=== PATIENT | female | born 1985 | race Caucasian/White ===

== ENCOUNTER 2018-06-22 10:54 | Emergency (ER) | payer OTHER ==
[2018-06-22 11:06] VITALS: BP 118/76
--- NOTE | 2018-06-22 11:17 | UC ---
Ear Complaint HPI - HPI Summary HPI Summary: 32 yo female presents with RIGHT ear pain for the last 3 days. She tells me that her pain initially began as mild, but has significantly increased over the last 3 days. She also has some muffled hearing from this ear. She is feeling well otherwise and denies fever, chills, sinus symptoms, sore throat, or cough. - History of Current Complaint Chief Complaint: UCEar Stated Complaint: EAR ACHE Time Seen by Provider: 06/22/18 11:13 Hx Obtained From: Patient Hx Last Menstrual Period: 06/11/18 Onset/Duration: Gradual Onset Severity Initially: Mild Severity Currently: Moderate Pain Intensity: 6 Pain Scale Used: 0-10 Numeric - Allergies/Home Medications Allergies/Adverse Reactions: Allergies Allergy/AdvReac Type Severity Reaction Status Date / Time doxycycline Allergy Hives Verified 06/22/18 11:06 PMH/Surg Hx/FS Hx/Imm Hx - Additional Past Medical History Additional PMH: None - Surgical History Surgical History: Yes Surgery Procedure, Year, and Place: gall bladder, d&c - Family History Known Family History: Positive: None - Social History Occupation: Employed Full-time Lives: With Family Alcohol Use: Occasionally Substance Use Type: None Smoking Status (MU): Never Smoked Tobacco Review of Systems All Other Systems Reviewed And Are Negative: Yes Constitutional: Positive: Negative Skin: Positive: Negative Eyes: Positive: Negative ENT: Positive: Ear Ache Respiratory: Positive: Negative Cardiovascular: Positive: Negative Gastrointestinal: Positive: Negative Neurovascular: Positive: Negative Neurological: Positive: Negative Psychological: Positive: Negative Physical Exam - Summary Physical Exam Summary: GENERAL: NAD. WDWN. No pain distress. SKIN: No rashes, sores, lesions, or open wounds. HEENT: Head: AT/NC Eyes: EOM intact. Conjunctiva clear without inflammation or discharge. Ears: Hearing grossly normal. RIGHT EAR: Moderate yellow/brown cerumen obstructing view of TM. Mild canal erythema and edema. Tragus TTP. s/p disimpaction: TM intact without erythema or bulging. Mild white discharge within canal. LEFT EAR: WNL. TM normal Nose: Nasal mucosa pink and moist. NTTP maxillary and frontal sinus. Throat: Posterior oropharynx without exudates, erythema, or tonsillar enlargement. Uvula midline. NECK: Supple. Nontender. No lymphadenopathy. CHEST: CTAB. No r/r/w. No accessory muscle use. Breathing comfortably and in no distress. CV: RRR. Without m/r/g. Pulses intact. NEURO: Alert. PSYCH: Age appropriate behavior. Triage Information Reviewed: Yes Vital Signs: Initial Vital Signs Temp 98 F 06/22/18 11:03 Pulse 78 06/22/18 11:03 Resp 16 06/22/18 11:03 BP 118/76 06/22/18 11:03 Pulse Ox 100 06/22/18 11:03 Vital Signs Reviewed: Yes Ear Complaint Course/Dx - Course Course Of Treatment: Cerumen impaction of right ear with otitis externa. Ear irrigation was performed with successful disimpaction of cerumen. On exam after disimpaction there was an obvious otitis externa, which I will treat with antibiotic ear drops. - Differential Dx/Diagnosis Provider Diagnoses: Right otitis externa. Right cerumen impaction Discharge - Sign-Out/Discharge Documenting (check all that apply): Patient Departure All imaging exams completed and their final reports reviewed: No Studies - Discharge Plan Condition: Stable Disposition: HOME Prescriptions: Ofloxacin 0.3% (Ear Drop)* [Floxin 0.3% OTIC.SUSIE (Ear Drop)] 5 drop RIGHT EAR BID #1 [id number] Patient Education Materials: Otitis Externa (ED), Cerumen Impaction (ED) Referrals: My Doyle MD [Primary Care Provider] - Additional Instructions: If you develop a fever, shortness of breath, chest pain, new or worsening symptoms - please call your PCP or go to the ED. - Billing Disposition and Condition Condition: STABLE Disposition: Home
== END 2018-06-22 11:36 | disposition home or self-care (01) ==
LOC: UCEAST 10:54
DX: H60.91 Unspecified otitis externa, right ear (principal); H61.21 Impacted cerumen, right ear; Z88.1 Allergy status to other antibiotic agents
CPT/HCPCS: 99213; G0463